=== PATIENT | male | born 1975 | race Caucasian/White ===

== ENCOUNTER 2018-10-07 10:30 | Emergency (ER) | payer BC ==
[2018-10-07 10:56] VITALS: BP 92/62
--- NOTE | 2018-10-07 11:58 | UC ---
Hand/Wrist HPI - HPI Summary HPI Summary: 43-year-old male presents with complaints of right hand pain and swelling x 2 days. States he was cleaning his grill and was using a spray bottle prior to the onset of the pain. No history or any trauma. Denies fever, chills, numbness , tingling, or weakness of the hand. - History Of Current Complaint Chief Complaint: UCUpperExtremity Stated Complaint: HAND INJURY Time Seen by Provider: 10/07/18 11:56 Hx Obtained From: Patient Pain Intensity: 5 - Allergies/Home Medications Allergies/Adverse Reactions: Allergies Allergy/AdvReac Type Severity Reaction Status Date / Time No Known Allergies Allergy Verified 10/07/18 10:56 Home Medications: Home Medications NK [No Home Medications Reported] 10/07/18 [History Confirmed 10/07/18] PMH/Surg Hx/FS Hx/Imm Hx Previously Healthy: Yes - Denies significant PMH - Surgical History Surgical History: Yes Surgery Procedure, Year, and Place: vasectomy - Family History Known Family History: Positive: Non-Contributory - Social History Occupation: Employed Full-time Lives: With Family Alcohol Use: Occasionally Substance Use Type: None Smoking Status (MU): Never Smoked Tobacco Review of Systems All Other Systems Reviewed And Are Negative: Yes Constitutional: Negative: Fever, Chills Skin: Negative: Bruising Respiratory: Positive: Negative Cardiovascular: Positive: Negative Gastrointestinal: Positive: Negative Genitourinary: Positive: Negative Motor: Negative: Weakness Neurovascular: Negative: Decreased Sensation Musculoskeletal: Positive: Other: - See HPI Neurological: Positive: Negative Is Patient Immunocompromised?: No Physical Exam - Summary Physical Exam Summary: GENERAL APPEARANCE: Well developed, well nourished, alert and cooperative, and appears to be in no acute distress. CARDIAC: Normal S1 and S2. No S3, S4 or murmurs. Rhythm is regular. There is no peripheral edema, cyanosis or pallor. Extremities are warm and well perfused. Capillary refill is less than 2 seconds. Peripheral pulses intact. LUNGS: Clear to auscultation without rales, rhonchi, wheezing or diminished breath sounds. ABDOMEN: Positive bowel sounds. Soft, nondistended, nontender. No guarding or rebound. No masses or hepatosplenomegally. MUSKULOSKELETAL: Normal muscular development. Normal gait. EXTREMITIES: Tenderness to the posterior right hand over the 3rd and 4th metacarpals with mild edema and erythema. No gross deformity. Circulation and sensation intact. SKIN: Skin normal color, texture and turgor with no lesions or eruptions. Triage Information Reviewed: Yes Vital Signs: Initial Vital Signs Temp 99 F 10/07/18 10:54 Pulse 48 10/07/18 10:54 Resp 16 10/07/18 10:54 BP 92/62 10/07/18 10:54 Pulse Ox 100 10/07/18 10:54 Vital Signs Reviewed: Yes Procedures - Splinting Right Upper Extremity Location: right hand Pre-Made Type: velcro Splint: wrist Pre-Proc Neuro Vasc Exam: normal Post-Proc Neuro Vasc Exam: normal Diagnostics - Radiology No standard instances Radiology Interpretation Completed By: Radiologist Summary of Radiographic Findings: Order Information: HAND - RIGHT MINIMUM 3 VIEWS. Accession Number: [id number]. CPT: 78667. Indication: Right hand pain and swelling. 4 views of the right hand demonstrates no fracture. No other bone or joint abnormality is noted. Healed fracture of the fifth metacarpal is noted. IMPRESSION: No fracture of the right hand is noted. Hand/Wrist Course/Dx - Course Course Of Treatment: 43-year-old male presents with complaints of right hand pain and swelling x 2 days. States he was cleaning his grill and was using a spray bottle prior to the onset of the pain. No history or any trauma. Denies fever, chills, numbness , tingling, or weakness of the hand. Afebrile. VSS. Patient had tenderness to the posterior right hand over the 3rd and 4th metacarpals with mild edema and erythema. No gross deformity. Circulation and sensation intact. X-ray showed no acute fracture or dislocation. Will treat conservatively for tendonitis. He was placed in a cockup wrist splint by RN. Circulation and sensation intact pre- and post-application. Recommending OTC analgesics and RICE. He is to follow up with orthopedic surgery in 5-7 days if symptoms do not improve. Anticipatory guidance and warning symptoms were reviewed with the patient. Verbalizes understanding and agree with POC. - Differential Dx/Diagnosis Provider Diagnosis: Tendonitis of right hand Discharge - Sign-Out/Discharge Documenting (check all that apply): Patient Departure All imaging exams completed and their final reports reviewed: Yes - Discharge Plan Condition: Stable Disposition: HOME Patient Education Materials: Tendinitis (ED) Referrals: No Primary Care Phys,NOPCP [Primary Care Provider] - Anam Pickard MD [Medical Doctor] - 5 Days (If no improvement. Call for appointment.) Additional Instructions: The x-ray performed in the clinic today showed no evidence of a fracture. I suspect you have some tendinitis from the repetitive movements you were performing. Rest the hand as much as possible. Wear the splint that was applied in the clinic until you are pain-free. You may remove to shower but should wear at all other times. Apply ice to the affected area for 15-20 minutes at least 4 times a day to help with the pain and swelling. Elevate the hand to help reduce swelling. Take acetaminophen (Tylenol) or ibuprofen (Advil, Motrin) according to directions as needed for pain. Follow up with orthopedic surgery in 5-7 days if symptoms do not improve. Call for appointment. Seek immediate medical attention if you have severe pain not managed with pain medication, develop numbness or tingling in the hand or fingers, or have any worsening of symptoms. - Billing Disposition and Condition Condition: STABLE Disposition: Home
== END 2018-10-07 12:39 | disposition home or self-care (01) ==
LOC: UCEAST 10:30
DX: M77.9 Enthesopathy, unspecified (principal); X50.0XXA Overexertion from strenuous movement or load, initial encounter; Y93.89 Activity, other specified; Y92.009 Unspecified place in unspecified non-institutional (private) residence as the place of occurrence of the external cause
CPT/HCPCS: 99202; G0463